=== PATIENT | female | born 1990 | race Two or more races ===

== ENCOUNTER 2019-08-30 17:32 | Emergency (ER) | payer OTHER ==
[~2019-08-30] VITALS: Ht 157.5 cm; Wt 56.7 kg
== END 2019-08-30 21:11 | disposition home or self-care (01) ==
LOC: ER 17:32
DX: O46.8X1 Other antepartum hemorrhage, first trimester (principal); Z34.01 Encounter for supervision of normal first pregnancy, first trimester